=== PATIENT | female | born 1980 | race Caucasian/White ===

== ENCOUNTER → 2016-04-17 | Outpatient (CLI) | payer OTHER, MEDICAID ==
--- NOTE | 2016-04-17 17:04 | DX ---
PA and Lateral Chest Indication: Right chest wall contusion. Evaluate for fracture. Comparison: Two-view chest dated February 10, 2015 Findings: The lungs are well aerated and clear. No pneumothorax, pulmonary consolidation, rib fractur e or effusion. Heart size is normal. Minimal biphasic curvature of the thoracic spine is unchanged si nce January 2015. Impression: Clear lungs. No rib fracture or pneumothorax.
== END ==
LOC: BMCIMAGING 16:31
PROVIDERS: ATTEND Family Medicine
DX: S20.211A Contusion of right front wall of thorax, initial encounter (principal); G43.109 Migraine with aura, not intractable, without status migrainosus; E55.9 Vitamin D deficiency, unspecified; R53.83 Other fatigue; R63.5 Abnormal weight gain; R79.89 Other specified abnormal findings of blood chemistry; S29.9XXA Unspecified injury of thorax, initial encounter; Z00.00 Encounter for general adult medical examination without abnormal findings

== ENCOUNTER → 2016-05-02 | Outpatient (CLI) | payer OTHER, MEDICAID ==
[~2016-05-02] MED LIST: GADOBUTROL 10 ML VIAL IVP ONE
== END ==
LOC: FIMAGING 12:46
PROVIDERS: ATTEND Otolaryngology
DX: G43.109 Migraine with aura, not intractable, without status migrainosus (principal)
CPT/HCPCS: 70553; A9585

== ENCOUNTER 2016-09-11 14:38 | Emergency (ER) | payer OTHER, MEDICAID ==
--- NOTE | 2016-09-11 15:11 | EDPHY ---
H & P Stated Complaint: "exposed to mold" dizzy n/v has seen PCP twice for same - Personal History LMP (Females 10-55): 1-7 Days Ago Current Tetanus/Diphtheria Vaccine: Yes Tetanus Vaccine Date: JUNE 2014 - Medical/Surgical History Hx Asthma: Yes Hx Chronic Respiratory Disease: No Hx Diabetes: No Hx Cardiac Disease: No Hx Renal Disease: No Hx Cirrhosis: No Hx Alcoholism: No Hx HIV/AIDS: No Hx Splenectomy or Spleen Trauma: No Other PMH: Mold exposure. endometriosis, OCD, Bipolar, Panic Attacks, Vertigo, Ovarian cysts, Benign breast nodules, Asthma. No psh. eczema. kidney infections - Social History Smoking Status: Heavy smoker Constitutional: Initial Vital Signs Temperature (C) 36.6 C 09/11/16 14:42 Heart Rate 70 09/11/16 14:42 Respiratory Rate 17 09/11/16 14:42 Blood Pressure 116/81 H 09/11/16 14:42 O2 Sat (%) 99 09/11/16 14:42 O2 Delivery Mode Room Air Allergies/Adverse Reactions: acetaminophen [From Tylenol] Allergy (Verified 09/11/16 14:41) aspirin Allergy (Verified 09/11/16 14:41) codeine Allergy (Verified 09/11/16 14:41) fluticasone propionate [From Advair Diskus] Allergy (Verified 09/11/16 14:41) hydromorphone HCl [From Dilaudid] Allergy (Verified 09/11/16 14:41) ibuprofen Allergy (Verified 09/11/16 14:41) Penicillins Allergy (Verified 09/11/16 14:41) salmeterol xinafoate [From Advair Diskus] Allergy (Verified 09/11/16 14:41) ALL PAIN MEDS Allergy (Uncoded 07/11/14 16:29) Home Medications: Medication Instructions Recorded Flonase Nasal [place] 09/01/13 Proventil Inhaler HFA (RX) 09/01/13 Valium 09/01/13 Medical Decision Making ED Course/Re-evaluation: CHIEF COMPLAINT: HISTORY OF PRESENT ILLNESS: must have 4 elements: Location, Quality, Severity , Duration, Timing, Context, Modifying Factors, Associated Signs and Symptoms REVIEW OF SYSTEMS: A 10 point review of systems was performed and is negative with the exception of the elements mentioned in the history of present illness. PHYSICAL EXAM: HR, BP, O2 Sat, RR. Temp noted General Appearance: Alert, well hydrated, appropriate, and non-toxic appearing. Head: Atraumatic without scalp tenderness or obvious injury Eyes: Pupils equal, round, reactive to light and accommodation, EOMI, no trauma , no injection. Ears: Clear bilaterally, no perforation, normal landmarks Nose: Atraumatic, no rhinorrhea, clear. Throat: There is no erythema or exudates, no lesions, normal tonsils, mucus membranes moist. Neck: Supple, 2+ carotid upstroke, nontender, no lymphadenopathy. Respiratory: No retractions, no distress, no wheezes, and no accessory muscle use. Lungs are clear to auscultation bilaterally. Cardiovascular: Regular rate and rhythm, no murmurs, rubs, or gallops. Bilateral carotid, radial, dorsalis pedis, and posterior tibial pulses intact. Good capillary refill all extremities. Gastrointestinal: Abdomen is soft, nontender, non-distended, no masses, no rebound, no guarding, no peritoneal signs. Musculoskeletal: Normal active ROM of all extremities, atraumatic. Neurological: Alert, appropriate, and interactive. The patient has normal DTRs and non-focal cranial nerves, motor, sensory, and cerebellar exam. Skin: No rashes, good turgor, no nodules on palpation. Past medical history: Past surgical history: Family history: Social history: DIAGNOSTICS/PROCEDURES/CRITICAL CARE TIME: DIFFERENTIAL DIAGNOSIS: MEDICAL DECISION MAKING: Departure - Departure Referrals: Rachel Jimenez MD [Primary Care Provider] - As per Instructions
--- NOTE | 2016-09-11 15:28 | EDPHY ---
H & P Stated Complaint: "exposed to mold" dizzy n/v has seen PCP twice for same - Personal History LMP (Females 10-55): 1-7 Days Ago Current Tetanus/Diphtheria Vaccine: Yes Tetanus Vaccine Date: JUNE 2014 - Medical/Surgical History Hx Asthma: Yes Hx Chronic Respiratory Disease: No Hx Diabetes: No Hx Cardiac Disease: No Hx Renal Disease: No Hx Cirrhosis: No Hx Alcoholism: No Hx HIV/AIDS: No Hx Splenectomy or Spleen Trauma: No Other PMH: Mold exposure. endometriosis, OCD, Bipolar, Panic Attacks, Vertigo, Ovarian cysts, Benign breast nodules, Asthma. No psh. eczema. kidney infections - Social History Smoking Status: Heavy smoker Constitutional: Initial Vital Signs Temperature (C) 36.6 C 09/11/16 14:42 Heart Rate 70 09/11/16 14:42 Respiratory Rate 17 09/11/16 14:42 Blood Pressure 116/81 H 09/11/16 14:42 O2 Sat (%) 99 09/11/16 14:42 O2 Delivery Mode Room Air Allergies/Adverse Reactions: acetaminophen [From Tylenol] Allergy (Verified 09/11/16 14:41) aspirin Allergy (Verified 09/11/16 14:41) codeine Allergy (Verified 09/11/16 14:41) fluticasone propionate [From Advair Diskus] Allergy (Verified 09/11/16 14:41) hydromorphone HCl [From Dilaudid] Allergy (Verified 09/11/16 14:41) ibuprofen Allergy (Verified 09/11/16 14:41) Penicillins Allergy (Verified 09/11/16 14:41) salmeterol xinafoate [From Advair Diskus] Allergy (Verified 09/11/16 14:41) ALL PAIN MEDS Allergy (Uncoded 07/11/14 16:29) Home Medications: Medication Instructions Recorded Flonase Nasal [place] 09/01/13 Proventil Inhaler HFA (RX) 09/01/13 Valium 09/01/13 Medical Decision Making ED Course/Re-evaluation: CHIEF COMPLAINT: Multiple complaints, dehydration HISTORY OF PRESENT ILLNESS: The patient is a 36 y/o female arriving with multiple complaints for the last two months and specifically feeling dehydrated today. She has a history of asthma, migraines, bipolar disorder, and several other chronic conditions. She says for the last 2 months she's had intermittent nausea, vomiting, decreased appetite, diffuse lower abdominal pain, chills, and dyspnea. She had a cough during this time that her PCP treated with 2 courses of azithromycin. She developed diarrhea 3 weeks ago after the first z-pack and states some days she has 4-5 episodes and other days it resolves completely. She reports daily dizziness, finger numbness, and headaches, which are not abnormal for her and she had a recent normal brain MRI to investigate these symptoms. Her shortness of breath is worse at night and she has been using her non-steroid inhaler daily for a few weeks. She attributes her symptoms to mold in her house and came to the ED today at the referral of her PCP "to get hydrated." She has been able to keep fluids down without issue. She has not treated her symptoms with steroids. REVIEW OF SYSTEMS: A 10 point review of systems was performed and is negative with the exception of the elements mentioned in the history of present illness. PHYSICAL EXAM: HR, BP, O2 Sat, RR. Temp noted General Appearance: Alert, well hydrated, appropriate, and non-toxic appearing. Head: Atraumatic without scalp tenderness or obvious injury Eyes: Pupils equal, round, reactive to light and accommodation, EOMI, no trauma , no injection. Ears: Clear bilaterally, no perforation, normal landmarks Nose: Atraumatic, no rhinorrhea, clear. Throat: There is no erythema or exudates, no lesions, normal tonsils, mucus membranes moist. Neck: Supple, non-tender, no lymphadenopathy. Respiratory: No retractions, no distress, no wheezes, and no accessory muscle use. Lungs are clear to auscultation bilaterally. Cardiovascular: Regular rate and rhythm, no murmurs, rubs, or gallops. Good capillary refill all extremities. Gastrointestinal: Abdomen is soft, mild diffuse abdominal tenderness, non- distended, no masses, no rebound, no guarding, no peritoneal signs. Musculoskeletal: Normal active ROM of all extremities, atraumatic. Neurological: Alert, appropriate, and interactive. Nonfocal neuro exam. Skin: No rashes, good turgor, no nodules on palpation. PAST MEDICAL HISTORY: Asthma - ProAir, endometriosis, OCD, fibromyalgia, bipolar , panic attacks, vertigo, ovarian cysts, benign breast nodules, eczema, kidney infections PAST SURGICAL HISTORY: Breast biopsy SOCIAL HISTORY: Heavy smoker, denies illicit drugs, PCP: Dr. Jimenez. Prior medical records reviewed including ED visit 02/10/15 for biopsy site check. DIFFERENTIAL DIAGNOSIS: The differential diagnosis for the patient's symptoms included but was not limited to dehydration, antibiotic-associated diarrhea, gastritis, gastroenteritis, appendicitis, medication side effect, environmental exposure, pneumonia, urinary tract infection, viral syndrome, meningitis, sepsis. MEDICAL DECISION MAKING: This is a 36 y/o female with several chronic medical conditions who presents with multiple complaints over the past several months and seems to be here primarily at the referral of her PCP to "get fluids." She is well-appearing on exam with normal breath sounds, benign abdomen, stable vitals, and moist mucous membranes. No evidence of dehydration, infectious process, or other acute condition. While patient is able to drink PO fluids without issue, she is specifically requesting IV fluids despite my recommendation to take PO fluids since she is tolerating them fine. IV established and 1L IV NS administered. She states she won't be able to produce stool sample today because her diarrhea has resolved. She will be discharged with PO prednisone and instructions to increase fluid intake. Recommended follow up with her PCP as needed. Departure - Departure Disposition: Home, Routine, Self-Care Clinical Impression: Dehydration Diarrhea Qualifiers: Diarrhea type: unspecified type Qualified Code(s): R19.7 - Diarrhea, unspecified Condition: Good Instructions: Dehydration (ED) Additional Instructions: Take prednisone as prescribed. Increase fluid intake. Follow up with your primary care provider as needed. Referrals: Rachel Jimenez MD [Primary Care Provider] - As per Instructions Report Scribed for: Chaitanya Snow Report Scribed by: Margaret May Date of Report: 09/11/16 Time of Report: 15:35
[2016-09-11] MEDS ORDERED: NS 1,000 ML IV ONE (15:58)
[2016-09-11 17:08] VITALS: BP 118/78; PULSE 79; RESP 16; TEMP 98.4; O2SAT 94
== END 2016-09-11 17:07 | disposition home or self-care (01) ==
DX: E86.0 Dehydration (principal); F17.200 Nicotine dependence, unspecified, uncomplicated; R19.7 Diarrhea, unspecified; J45.909 Unspecified asthma, uncomplicated
CPT/HCPCS: G0204

== ENCOUNTER → 2016-09-11 | Outpatient (CLI) | payer OTHER, MEDICAID | LOC: FIMAGING 12:46 | PROVIDERS: ATTEND Surgery | DX: Z12.39 Encounter for other screening for malignant neoplasm of breast (principal); N63 Unspecified lump in breast | CPT/HCPCS: 76641; G0204 ==

== ENCOUNTER 2017-07-06 14:59 | Emergency (ER) | payer OTHER, MEDICAID ==
--- NOTE | 2017-07-06 16:10 | EDPHY ---
H & P Stated Complaint: N/V, fevers, dizzy, seeing 'spots' for 1 week Time Seen by Provider: 07/06/17 16:10 HPI/ROS: CHIEF COMPLAINT: [ ] HISTORY OF PRESENT ILLNESS: [Need 4: Location, Duration, Severity, Quality, Context, Timing Modifying Factors, Associated S&S] REVIEW OF SYSTEMS: A comprehensive 10 point review of systems is otherwise negative aside from elements mentioned in the history of present illness. - Personal History LMP (Females 10-55): Unknown Current Tetanus Diphtheria and Acellular Pertussis (TDAP): Yes Tetanus Vaccine Date: JUNE 2014 - Medical/Surgical History Hx Asthma: Yes Hx Chronic Respiratory Disease: No Hx Diabetes: No Hx Cardiac Disease: No Hx Renal Disease: No Hx Cirrhosis: No Hx Alcoholism: No Hx HIV/AIDS: No Hx Splenectomy or Spleen Trauma: No Other PMH: Mold exposure. endometriosis, OCD, Bipolar, Panic Attacks, Vertigo, Ovarian cysts, Benign breast nodules, Asthma. No psh. eczema. kidney infections - Social History Smoking Status: Heavy smoker - Physical Exam Exam: General Appearance: [Alert, no distress] Eyes: [Pupils equal and round no pallor or injection] ENT, Mouth: [Mucous membranes moist] Respiratory: [There are no retractions, lungs are clear to auscultation] Cardiovascular: [Regular rate and rhythm] Gastrointestinal: [Abdomen is soft and nontender, no masses, bowel sounds normal] Neurological: [A&O, normal motor function, normal sensory exam, normal cranial nerves] Skin: [Warm and dry, no rashes] Musculoskeletal: [Neck is supple nontender] Extremities: [symmetrical, full range of motion] Psychiatric: [Patient is oriented X 3, there is no agitation] Constitutional: Initial Vital Signs Temperature (C) 36.5 C 07/06/17 15:12 Heart Rate 78 07/06/17 15:12 Respiratory Rate 16 07/06/17 15:12 Blood Pressure 129/74 H 07/06/17 15:12 O2 Sat (%) 99 07/06/17 15:12 O2 Delivery Mode Room Air Allergies/Adverse Reactions: acetaminophen [From Tylenol] Allergy (Verified 09/11/16 14:41) aspirin Allergy (Verified 09/11/16 14:41) codeine Allergy (Verified 09/11/16 14:41) fluticasone propionate [From Advair Diskus] Allergy (Verified 09/11/16 14:41) hydromorphone HCl [From Dilaudid] Allergy (Verified 09/11/16 14:41) ibuprofen Allergy (Verified 09/11/16 14:41) Penicillins Allergy (Verified 09/11/16 14:41) salmeterol xinafoate [From Advair Diskus] Allergy (Verified 09/11/16 14:41) ALL PAIN MEDS Allergy (Uncoded 07/11/14 16:29) Home Medications: Medication Instructions Recorded Flonase Nasal [place] 09/01/13 Proventil Inhaler HFA (RX) 09/01/13 Valium 09/01/13 predniSONE 40 mg PO DAILY #10 tab 09/11/16
--- NOTE | 2017-07-06 16:33 | EDPHY ---
H & P Time Seen by Provider: 07/06/17 16:10 HPI/ROS: CHIEF COMPLAINT: Nausea, vomiting, abdominal pain HISTORY OF PRESENT ILLNESS: 37-year-old female presents to the emergency department by private vehicle with multiple complaints. The patient states 1 week ago she began feeling nauseous and had vomiting. She had subjective fevers and chills. She saw her primary care provider, Dr. Rachel Marina and had laboratory studies drawn. She was started on medication for irritable bowel syndrome. She apparently was called by her primary care provider and was told that she had an elevated lipase and should come to the emergency department. She has had generalized abdominal pain. She has felt nauseous. She has not vomited today. No diarrhea. She was having painful bowel movements. She has had some urinary urgency and frequency with urination. REVIEW OF SYSTEMS: Constitutional: Subjective fever Eyes: No double or blurry vision. ENT: No sore throat. Respiratory: No cough, no shortness of breath. Cardiac: No chest pain. Gastrointestinal: Nausea, vomiting, abdominal pain. No diarrhea. Genitourinary: No dysuria. Musculoskeletal: No neck or back pain. Skin: No rashes. Neurological: No headache. Past Medical/Surgical History: Mold exposure, endometriosis, OCD, bipolar, panic attacks, vertigo, eczema, ovarian cyst, benign breast nodules, asthma Social History: Single, disabled Smoking Status: Heavy smoker Physical Exam: General Appearance: Alert, no distress. 129/74. Afebrile. No apparent distress. Eyes: Pupils equal and round. Extraocular motions are all intact. ENT: Mouth: Mucous membranes moist. Respiratory: No wheezing, rhonchi, or rales, lungs are clear to auscultation. Cardiovascular: Regular rate and rhythm. Gastrointestinal: Abdomen is soft. She has mild diffuse tenderness with palpation to the abdomen. There is no rebound, guarding or masses noted. Patient has mild left-sided CVA tenderness with palpation. No CVA tenderness on the right. Neurological: Alert and oriented x 3, cranial nerves II through XII grossly intact Skin: Warm and dry, no rashes. Musculoskeletal: Nontender to palpate along the cervical, thoracic or lumbar spine. Neck is supple. Extremities: Full range of motion and no peripheral edema. Psychiatric: Patient is oriented X 3, there is no agitation. Constitutional: Initial Vital Signs Temperature (C) 36.5 C 07/06/17 15:12 Heart Rate 78 07/06/17 15:12 Respiratory Rate 16 07/06/17 15:12 Blood Pressure 129/74 H 07/06/17 15:12 O2 Sat (%) 99 07/06/17 15:12 O2 Delivery Mode Room Air Allergies/Adverse Reactions: acetaminophen [From Tylenol] Allergy (Verified 09/11/16 14:41) aspirin Allergy (Verified 09/11/16 14:41) codeine Allergy (Verified 09/11/16 14:41) fluticasone propionate [From Advair Diskus] Allergy (Verified 09/11/16 14:41) hydromorphone HCl [From Dilaudid] Allergy (Verified 09/11/16 14:41) ibuprofen Allergy (Verified 09/11/16 14:41) Penicillins Allergy (Verified 09/11/16 14:41) salmeterol xinafoate [From Advair Diskus] Allergy (Verified 09/11/16 14:41) ALL PAIN MEDS Allergy (Uncoded 07/11/14 16:29) Home Medications: Medication Instructions Recorded Flonase Nasal [place] 09/01/13 Proventil Inhaler HFA (RX) 09/01/13 Valium 09/01/13 predniSONE 40 mg PO DAILY #10 tab 09/11/16 Medical Decision Making ED Course/Re-evaluation: 37-year-old female presents to the emergency department with multiple complaints. Laboratory studies are all unremarkable including CBC, chemistry, urine. I also repeated her lipase since this was elevated at her primary care provider's office and this was normal. The patient was reassured. The patient has a benign abdomen. I do not think imaging studies are indicated. Patient drank 2 containers of orange juice while she was in the emergency department. She was able to ambulate to the bathroom. She will have close follow-up with her primary care provider. Differential Diagnosis: Including but not limited to urinary tract infection, pyelonephritis, kidney stone, acute appendicitis, electrolyte abnormality, dehydration - Data Points Laboratory Results: Laboratory Results 07/06/17 16:42 07/06/17 16:42 07/06/17 07/06/17 07/06/17 16:42 16:42 16:42 WBC 7.98 10^3/uL 10^3/uL (3.80-9.50) RBC 4.72 10^6/uL 10^6/uL (4.18-5.33) Hgb 13.7 g/dL g/dL (12.6-16.3) Hct 40.9 % % (38.0-47.0) MCV 86.7 fL fL (81.5-99.8) MCH 29.0 pg pg (27.9-34.1) MCHC 33.5 g/dL g/dL (32.4-36.7) RDW 13.2 % % (11.5-15.2) Plt Count 238 10^3/uL 10^3/uL (150-400) MPV 10.6 fL fL (8.7-11.7) Neut % (Auto) 63.6 % % (39.3-74.2) Lymph % (Auto) 27.7 % % (15.0-45.0) Lake % (Auto) 5.5 % % (4.5-13.0) Eos % (Auto) 2.0 % % (0.6-7.6) Baso % (Auto) 0.9 % % (0.3-1.7) Nucleat RBC Rel Count 0.0 % % (0.0-0.2) Absolute Neuts (auto) 5.08 10^3/uL 10^3/uL (1.70-6.50) Absolute Lymphs (auto) 2.21 10^3/uL 10^3/uL (1.00-3.00) Absolute Monos (auto) 0.44 10^3/uL 10^3/uL (0.30-0.80) Absolute Eos (auto) 0.16 10^3/uL 10^3/uL (0.03-0.40) Absolute Basos (auto) 0.07 10^3/uL 10^3/uL (0.02-0.10) Absolute Nucleated RBC 0.00 10^3/uL 10^3/uL (0-0.01) Immature Gran % 0.3 % % (0.0-1.1) Immature Gran # 0.02 10^3/uL 10^3/uL (0.00-0.10) Sodium 139 mEq/L mEq/L (135-145) Potassium 4.0 mEq/L mEq/L (3.5-5.2) Chloride 105 mEq/L mEq/L (97-110) Carbon Dioxide 24 mEq/l mEq/l (22-31) Anion Gap 10 mEq/L mEq/L (8-16) BUN 14 mg/dL mg/dL (7-23) Creatinine 0.8 mg/dL mg/dL (0.6-1.0) Estimated GFR > 60 Glucose 88 mg/dL mg/dL (70-100) Calcium 9.4 mg/dL mg/dL (8.5-10.4) Total Bilirubin 0.9 mg/dL mg/dL (0.1-1.4) Conjugated Bilirubin 0.3 mg/dL mg/dL (0.0-0.5) Unconjugated Bilirubin 0.6 mg/dL mg/dL (0.0-1.1) AST 26 IU/L IU/L (14-46) ALT 41 IU/L IU/L (9-52) Alkaline Phosphatase 45 IU/L IU/L (38-126) Total Protein 7.5 g/dL g/dL (6.3-8.2) Albumin 4.6 g/dL g/dL (3.5-5.0) Lipase 249 IU/L IU/L (23-300) Beta HCG, Qual NEGATIVE Urine Color Urine Appearance Urine pH Ur Specific [place] Urine Protein Urine Ketones Urine Blood Urine Nitrate Urine Bilirubin Urine Urobilinogen Ur Leukocyte Esterase Urine Glucose 07/06/17 16:20 WBC RBC Hgb Hct MCV MCH MCHC RDW Plt Count MPV Neut % (Auto) Lymph % (Auto) Lake % (Auto) Eos % (Auto) Baso % (Auto) Nucleat RBC Rel Count Absolute Neuts (auto) Absolute Lymphs (auto) Absolute Monos (auto) Absolute Eos (auto) Absolute Basos (auto) Absolute Nucleated RBC Immature Gran % Immature Gran # Sodium Potassium Chloride Carbon Dioxide Anion Gap BUN Creatinine Estimated GFR Glucose Calcium Total Bilirubin Conjugated Bilirubin Unconjugated Bilirubin AST ALT Alkaline Phosphatase Total Protein Albumin Lipase Beta HCG, Qual Urine Color YELLOW Urine Appearance CLEAR Urine pH 7.0 (5.0-7.5) Ur Specific [place] 1.006 (1.002-1.030) Urine Protein NEGATIVE (NEGATIVE) Urine Ketones TRACE H (NEGATIVE) Urine Blood NEGATIVE (NEGATIVE) Urine Nitrate NEGATIVE (NEGATIVE) Urine Bilirubin NEGATIVE (NEGATIVE) Urine Urobilinogen NEGATIVE EU EU (0.2-1.0) Ur Leukocyte Esterase NEGATIVE (NEGATIVE) Urine Glucose NEGATIVE (NEGATIVE) Medications Given: Discontinued Medications Sodium Chloride (Ns) 1,000 mls @ 0 mls/hr IV ONCE ONE PRN Reason: Wide Open Stop: 07/06/17 16:52 Last Admin: 07/06/17 17:00 Dose: 1,000 mls Departure - Departure Disposition: Home, Routine, Self-Care Clinical Impression: Nausea and vomiting Qualifiers: Vomiting type: unspecified Vomiting Intractability: non-intractable Qualified Code(s): R11.2 - Nausea with vomiting, unspecified Abdominal pain Qualifiers: Abdominal location: generalized Qualified Code(s): R10.84 - Generalized abdominal pain Condition: Good Instructions: Acute Nausea and Vomiting (ED), Abdominal Pain (ED) Additional Instructions: Diet and activity as tolerated. Follow up with primary care provider as discussed. You should also consider following up with rn nursery. Return to the emergency department if you develop recurring fever, blood in her urine, recurring vomiting, or if you feel worse in any way. Referrals: Rachel Jimenez MD [Primary Care Provider] - As per Instructions Neno Fernandez MD [[facility] [place] Primary Care Provider] - As per Instructions ( Laryngologist on-call) Jess Barakat MD [Medical Doctor] - As per Instructions ([facility] )
[2017-07-06] MEDS ORDERED: NS 1,000 ML IV ONE (16:51)
[2017-07-06 16:53] LABS: PLATELET COUNT 238 10^3/uL (150-400)
[2017-07-06 18:17] VITALS: BP 121/74
== END 2017-07-06 18:16 | disposition home or self-care (01) ==
DX: R11.2 Nausea with vomiting, unspecified (principal); R10.84 Generalized abdominal pain; F17.200 Nicotine dependence, unspecified, uncomplicated; J45.909 Unspecified asthma, uncomplicated

== ENCOUNTER 2017-08-12 19:09 | Emergency (ER) | payer OTHER, MEDICAID ==
--- NOTE | 2017-08-12 19:25 | EDPHY ---
HPI/HX/ROS/PE/MDM Narrative: CHIEF COMPLAINT: Cat may have TB HISTORY OF PRESENT ILLNESS: The patient is a 37 y/o female who believes her cat has tuberculosis and is concerned that she now has tuberculosis. 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 Due to this finding, she was advised to present to the emergency department from her cats managed services sales consultant as well as her primary care provider. For the past month the patient has had night sweats and a tight chest which she believes is due to mold exposure. No fever, chest pain, shortness of breath, palpitations, vomiting, diarrhea, urinary complaints, headache, lightheadedness. REVIEW OF SYSTEMS: Aside from elements discussed in the HPI, a comprehensive 10-point review of systems was reviewed and is negative. PAST MEDICAL HISTORY: Mold exposure, endometriosis, OCD, bipolar, vertigo, ovarian cysts, asthma, eczema, kidney infections SOCIAL HISTORY: Lives in [place], single, smoker VITAL SIGNS: Reviewed by me GENERAL: Well-developed, well-nourished, resting comfortably in no respiratory distress. HEENT: [place]. LUNGS: Clear to auscultation bilaterally, no wheezes, rhonchi or rales. CARDIAC: Regular rate and rhythm, no rubs, murmurs or gallops. ABDOMEN: Benign. BACK: No CVA tenderness. EXTREMITIES: No trauma. No edema. Range of motion is normal throughout. NEURO: Alert and oriented, grossly nonfocal. SKIN: Warm and dry, no rash. PSYCHIATRIC: Normal mentation, no agitation. Portions of this note were transcribed by a esthetician and manager medical spa. I personally performed a history, physical exam, medical decision making, and confirmed accuracy of information the transcribed note. ED Course: The patient is a 37 y/o female who was informed that her cat has a mycobacterium present in a tissue biopsy and was referred to ED. I have discussed having a PPD TB test vs. having the mycobacterium in cat sample subtyped vs. having a chest x-ray to rule out active TB. She is comfortable with PPD placement and chest x-ray. 1945: Consulted with managed services sales consultant from [facility] managed services sales consultant school. He has referred this case to the internal medicine department at [facility] as well as advised the patient to have her vet consult with the [facility] vet. 1954: I reviewed patient's chest x-ray which is negative for acute findings. 2015: Reassessed patient and discussed PPD reading on Thursday as well as follow up with [facility] veterinary internal medicine. Patient is comfortable with this plan. MDM: Diff dx considered included mycobacterium tuberuli exposure, non TB mycobacterium exposure, URI, allergens. - Data Points Imaging Results: IMPRESSION: Normal chest x-ray. Dictated By: Woodrow Wilson MD Medications Given: Discontinued Medications Tuberculin PPD (Ppd Test Syringe) 5 tu ID ONCE ONE Stop: 08/12/17 19:43 Last Admin: 08/12/17 20:32 Dose: 5 tu General Time Seen by Provider: 08/12/17 19:24 Initial Vital Signs: Initial Vital Signs Temperature (C) 36.6 C 08/12/17 19:15 Heart Rate 86 08/12/17 19:15 Respiratory Rate 16 08/12/17 19:15 Blood Pressure 130/82 H 08/12/17 19:15 O2 Sat (%) 98 08/12/17 19:15 O2 Delivery Mode Room Air Allergies/Adverse Reactions: acetaminophen [From Tylenol] Allergy (Verified 08/12/17 19:19) aspirin Allergy (Verified 08/12/17 19:19) codeine Allergy (Verified 08/12/17 19:19) fluticasone propionate [From Advair Diskus] Allergy (Verified 08/12/17 19:19) hydromorphone HCl [From Dilaudid] Allergy (Verified 08/12/17 19:19) ibuprofen Allergy (Verified 08/12/17 19:19) Penicillins Allergy (Verified 08/12/17 19:19) salmeterol xinafoate [From Advair Diskus] Allergy (Verified 08/12/17 19:19) ALL PAIN MEDS Allergy (Uncoded 08/12/17 19:19) Home Medications: Medication Instructions Recorded Valium 09/01/13 Baclofen 08/12/17 Departure - Departure Disposition: Home, Routine, Self-Care Clinical Impression: PPD screening test Condition: Good Instructions: Tuberculosis (DC) Additional Instructions: Have your TB test read in 72 hours. You may return on Thursday morning and Dr. Snow will read the PPD. The emergency managed services sales consultant at [facility] has not heard of this transmission, however this case was referred to the internal medicine department at [facility]. The recommendation was that your managed services sales consultant should reach out to the internal medicine department at [facility] or the [facility] managed services sales consultant for more direction on this issue. Referrals: Rachel Jimenez MD [Primary Care Provider] - As per Instructions Report Scribed for: Ingrid Fisher Report Scribed by: Taniya Warren Date of Report: 08/12/17 Time of Report: 19:27
[2017-08-12] MEDS ORDERED: TUBERCULIN (PPD) 5 TU/0.1 ML SYRINGE ID ONE (19:42)
[2017-08-12 20:48] VITALS: BP 109/79
== END 2017-08-12 20:49 | disposition home or self-care (01) ==
DX: R61 Generalized hyperhidrosis (principal); R07.89 Other chest pain; Z11.1 Encounter for screening for respiratory tuberculosis; J45.909 Unspecified asthma, uncomplicated; F17.200 Nicotine dependence, unspecified, uncomplicated

== ENCOUNTER 2017-10-08 22:41 | Emergency (ER) | payer OTHER, MEDICAID ==
[2017-10-08] MEDS ORDERED: NS 1,000 ML IV ONE ×2 (23:14→23:56)
--- NOTE | 2017-10-08 23:14 | EDPHY ---
General Time Seen by Provider: 10/08/17 22:53 Narrative: CHIEF COMPLAINT: "A lot" HISTORY OF PRESENT ILLNESS: Patient presents with chief complaint of "a lot." Her primary complaint is cough. She says that she has been coughing for nearly 2 months. She has a productive cough with various color sputum. She has been short of breath and she frequently cough to the point that she vomits. No chest pain but she does have painful cough and inspiration at times. Questionable fever. She has also had some nausea, sinus drainage, in general malaise. She has no exertional pain. No recent travel, trauma, surgery or exogenous estrogen use. She thinks that this may be related to mold in her home and is currently trying to "get someone to take care this."No other associated complaints or modifying factors. Patient requested that a female be present at all times, and we were happy to accommodate this. Marina VILLALOBOS was present for HPI, physical exam and medical decision making. REVIEW OF SYSTEMS: Ten systems reviewed and are negative unless otherwise noted in the HPI PCP: Dr. Jimenez SPECIALISTS: Multiple PAST MEDICAL HISTORY: Panic attacks, vertigo carbo she peak up with bipolar disorder, endometriosis, mold exposure, irritable bowel, asthma, concussions, chronic pain, eczema, kidney infections, left ear discomfort, breast nodule, ovarian cysts PAST SURGICAL HISTORY: Cystectomy SOCIAL HISTORY: Nonsmoker. Does not work. Lives independently FAMILY HISTORY: Noncontributory EXAMINATION General Appearance: Alert, no distress. Well-developed and well-nourished Head: normocephalic, atraumatic Eyes: EOM symmetric. Pupils equal and round, no conjunctival pallor or injection ENT, Mouth: Mucous membranes moist. Airway patent Neck: Normal inspection, supple, non-tender. No meningismus Respiratory: Mild rhonchi. No wheezing. No crackles, diminishment, consolidation, retractions or distress. Cardiovascular: Regular rate and rhythm. No murmur Gastrointestinal: Abdomen is soft and nontender Back: non-tender, no bony abnormalities Neurological: A&O, nonfocal, normal gait Skin: Warm and dry, no rash Extremities: Nontender, no pedal edema Psychiatric: Mood and affect normal DIFFERENTIAL DIAGNOSES: Including but not limited to bronchitis, pneumonitis, pleurisy, pneumonia, ACS, PE, pericarditis MDM: 11:15 p.m. Multiple complaints with central complaint of cough for long duration. She has no active chest pain. No exertional chest pain. Her vital signs are well within normal limits and she does not meet SIRS criteria. I have ordered laboratory studies, EKG and point of care troponin given her symptoms. I have also ordered a two view chest x-ray. IV will placed and will provide fluid she is feeling very dehydrated she is resting comfortably in no acute distress. 11:45 p.m. Point of care troponin, CBC and chemistry are all within normal limits. Chest x -ray is unremarkable for any signs of pneumonia. 12:20 a.m. Patient re-evaluated with Marina VILLALOBOS at bedside. No evidence of pneumonia on chest x-ray and patient likely has bronchitis. This could be to viral, environmental or allergy in etiology. We discuss Zithromax given the duration of symptoms in conjunction with short course of steroid. We discussed over-the- counter anti tussive and mucolytics. We discussed follow up with primary care physician closely for further care and testing. We discussed ED precautions for exertional chest pain or worsening symptoms. I have answered all of her questions. She is comfortable this plan and discharged home stable condition SUPERVISION: This patient was independently evaluated without direct involvement of or examination by the attending physician. - Diagnostics Imaging Results: Imaging Impressions Chest X-Ray 10/08/17 23:14 Impression: No acute cardiopulmonary process. - History Smoking Status: Heavy smoker - Objective Vital Signs: Initial Vital Signs Temperature (C) 97.7 F 10/08/17 22:44 Heart Rate 99 10/08/17 22:44 Respiratory Rate 20 10/08/17 22:44 Blood Pressure 131/82 H 10/08/17 22:44 O2 Sat (%) 100 10/08/17 22:44 O2 Delivery Mode Room Air Allergies/Adverse Reactions: acetaminophen [From Tylenol] Allergy (Verified 08/12/17 19:19) aspirin Allergy (Verified 08/12/17 19:19) codeine Allergy (Verified 08/12/17 19:19) fluticasone propionate [From Advair Diskus] Allergy (Verified 08/12/17 19:19) hydromorphone HCl [From Dilaudid] Allergy (Verified 08/12/17 19:19) ibuprofen Allergy (Verified 08/12/17 19:19) Penicillins Allergy (Verified 08/12/17 19:19) salmeterol xinafoate [From Advair Diskus] Allergy (Verified 08/12/17 19:19) ALL PAIN MEDS Allergy (Uncoded 08/12/17 19:19) Home Medications: Medication Instructions Recorded Valium 09/01/13 Baclofen 08/12/17 Azithromycin [Zithromax] 250 mg PO DAILY #4 tab 10/09/17 Dexamethasone [Decadron 4 MG (*)] 8 mg PO ONCE #2 tab 10/09/17 Laboratory Results: Laboratory Results 10/08/17 23:22 10/08/17 23:22 10/08/17 10/08/17 10/08/17 23:29 23:22 23:22 WBC RBC Hgb Hct MCV MCH MCHC RDW Plt Count MPV Neut % (Auto) Lymph % (Auto) [place] % (Auto) Eos % (Auto) Baso % (Auto) Nucleat RBC Rel Count Absolute Neuts (auto) Absolute Lymphs (auto) Absolute Monos (auto) Absolute Eos (auto) Absolute Basos (auto) Absolute Nucleated RBC Immature Gran % Immature Gran # PT INR APTT Sodium 138 mEq/L mEq/L (135-145) Potassium 3.9 mEq/L mEq/L (3.3-5.0) Chloride 106 mEq/L mEq/L (97-110) Carbon Dioxide 23 mEq/l mEq/l (22-31) Anion Gap 9 mEq/L mEq/L (8-16) BUN 11 mg/dL mg/dL (7-23) Creatinine 0.7 mg/dL mg/dL (0.6-1.0) Estimated GFR > 60 Glucose 107 mg/dL H mg/dL (70-100) Calcium 9.5 mg/dL mg/dL (8.5-10.4) Total Bilirubin 0.4 mg/dL mg/dL (0.1-1.4) Conjugated Bilirubin 0.1 mg/dL mg/dL (0.0-0.5) Unconjugated Bilirubin 0.3 mg/dL mg/dL (0.0-1.1) AST 21 IU/L IU/L (14-46) ALT 27 IU/L IU/L (9-52) Alkaline Phosphatase 40 IU/L IU/L (38-126) POC Troponin I 0.00 ng/mL ng/mL (0.00-0.08) Total Protein 7.1 g/dL g/dL (6.3-8.2) Albumin 4.3 g/dL g/dL (3.5-5.0) Lipase 289 IU/L IU/L (23-300) Beta HCG, Qual NEGATIVE 10/08/17 10/08/17 23:22 23:22 WBC 10.08 10^3/uL H 10^3/uL (3.80-9.50) RBC 5.11 10^6/uL 10^6/uL (4.18-5.33) Hgb 14.9 g/dL g/dL (12.6-16.3) Hct 43.9 % % (38.0-47.0) MCV 85.9 fL fL (81.5-99.8) MCH 29.2 pg pg (27.9-34.1) MCHC 33.9 g/dL g/dL (32.4-36.7) RDW 13.0 % % (11.5-15.2) Plt Count 261 10^3/uL 10^3/uL (150-400) MPV 10.8 fL fL (8.7-11.7) Neut % (Auto) 64.7 % % (39.3-74.2) Lymph % (Auto) 23.7 % % (15.0-45.0) [place] % (Auto) 5.8 % % (4.5-13.0) Eos % (Auto) 4.7 % % (0.6-7.6) Baso % (Auto) 0.7 % % (0.3-1.7) Nucleat RBC Rel Count 0.0 % % (0.0-0.2) Absolute Neuts (auto) 6.53 10^3/uL H 10^3/uL (1.70-6.50) Absolute Lymphs (auto) 2.39 10^3/uL 10^3/uL (1.00-3.00) Absolute Monos (auto) 0.58 10^3/uL 10^3/uL (0.30-0.80) Absolute Eos (auto) 0.47 10^3/uL H 10^3/uL (0.03-0.40) Absolute Basos (auto) 0.07 10^3/uL 10^3/uL (0.02-0.10) Absolute Nucleated RBC 0.00 10^3/uL 10^3/uL (0-0.01) Immature Gran % 0.4 % % (0.0-1.1) Immature Gran # 0.04 10^3/uL 10^3/uL (0.00-0.10) PT 13.3 SEC SEC (12.0-15.0) INR 0.99 (0.83-1.16) APTT 30.6 SEC SEC (23.0-38.0) Sodium Potassium Chloride Carbon Dioxide Anion Gap BUN Creatinine Estimated GFR Glucose Calcium Total Bilirubin Conjugated Bilirubin Unconjugated Bilirubin AST ALT Alkaline Phosphatase POC Troponin I Total Protein Albumin Lipase Beta HCG, Qual Medications Given: Discontinued Medications Azithromycin (Zithromax) 500 mg PO EDNOW ONE PRN Reason: Protocol Stop: 10/09/17 00:20 Last Admin: 10/09/17 00:30 Dose: 500 mg Dexamethasone (Decadron) 8 mg PO EDNOW ONE Stop: 10/09/17 00:19 Last Admin: 10/09/17 00:30 Dose: 8 mg Sodium Chloride (Ns) 1,000 mls @ 0 mls/hr IV EDNOW ONE; Wide Open PRN Reason: Protocol Stop: 10/08/17 23:15 Last Admin: 10/08/17 23:22 Dose: 1,000 mls Sodium Chloride (Ns) 1,000 mls @ 0 mls/hr IV EDNOW ONE; Wide Open PRN Reason: Protocol Stop: 10/08/17 23:57 Last Admin: 10/09/17 00:32 Dose: Not Given Promethazine HCl (Phenergan) 12.5 mg IVP ONCE ONE Stop: 10/08/17 23:16 Last Admin: 10/08/17 23:51 Dose: Not Given Point of Care Test Results: Chemistry 10/08/17 23:29 POC Troponin I 0.00 ng/mL ng/mL (0.00-0.08) Departure - Departure Disposition: Home, Routine, Self-Care Clinical Impression: Post-tussive emesis Acute bronchitis Qualifiers: Bronchitis organism: unspecified organism Qualified Code(s): J20.9 - Acute bronchitis, unspecified Condition: Good Instructions: Azithromycin (By mouth), Dexamethasone (By mouth), Acute Bronchitis (ED) Additional Instructions: 1. Zithromax as prescribed to completion. Her 1st dose was given in the emergency department. 2. Decadron x1 on Thursday when you fill the medication 3. [id number] dextromethorphan as needed for cough. Follow the instructions on the box 4. [id number] Mucinex as needed for expectorant. Follow the instructions on the box 5. Increase fluid intake 6. Continue your albuterol inhaler 7. Contact her primary care physician for further care 8. ED precautions for worsening symptoms, exertional chest pain Referrals: Rachel Jimenez MD [Primary Care Provider] - As per Instructions Prescriptions: Azithromycin [Zithromax] 250 mg PO DAILY #4 tab Dexamethasone [Decadron 4 MG (*)] 8 mg PO ONCE #2 tab
[2017-10-08] MEDS ORDERED: PROMETHAZINE HCL 25 MG/ML INJ IVP ONE (23:15)
[2017-10-08 23:31] LABS: PLATELET COUNT 261 10^3/uL (150-400)
[2017-10-08 23:42] LABS: INR 0.99 (0.83-1.16); PROTIME(PATIENT) 13.3 SEC (12.0-15.0)
--- NOTE | 2017-10-08 23:49 | CPEKG ---
Heart Rate: 75 RR Interval: 800 P-R Interval: 180 QRSD Interval: 90 QT Interval: 392 QTC Interval: 438 P [place]: 73 QRS [place]: 5 T Wave [facility] [place]: 62 EKG Severity - NORMAL ECG - EKG Impression: SINUS RHYTHM Electronically Signed By: Todd Sim 09-Oct-2017 06:55:31
[2017-10-09] MEDS ORDERED: DEXAMETHASONE 4 MG TAB PO ONE (00:18)
[2017-10-09] MEDS ORDERED: AZITHROMYCIN 250 MG TAB PO ONE (00:19)
[2017-10-09 00:39] VITALS: BP 127/86
== END 2017-10-09 01:09 | disposition home or self-care (01) ==
DX: J20.9 Acute bronchitis, unspecified (principal); R11.10 Vomiting, unspecified; E86.9 Volume depletion, unspecified; J45.909 Unspecified asthma, uncomplicated; F17.200 Nicotine dependence, unspecified, uncomplicated
CPT/HCPCS: 84484-PO

== ENCOUNTER → 2018-01-22 | Outpatient (CLI) | payer OTHER, MEDICAID | LOC: BMCIMAGING 16:04 | PROVIDERS: ATTEND Family Medicine | DX: M79.89 Other specified soft tissue disorders (principal) ==

== ENCOUNTER → 2018-01-22 | Outpatient (CLI) | payer OTHER, MEDICAID | LOC: BMCIMAGING 14:24 | PROVIDERS: ATTEND Family Medicine | DX: M25.561 Pain in right knee (principal); M25.562 Pain in left knee ==

== ENCOUNTER → 2018-08-16 | Outpatient (CLI) | payer OTHER, MEDICAID | LOC: FIMAGING 14:11 ==